=== PATIENT | female | born 1950 | race Caucasian/White ===

== ENCOUNTER → 2018-02-20 | Outpatient (CLI) | payer OTHER ==
[~2018-02-20] MED LIST: ADV100/50 INH; ALB6.7R INH; ALBU1.257 IH; ALBU8.5H IH; AZIT-17 PO; BUPR-136 PO; CIPR-214 PO; CLO10 MT; CYC10 PO; DIA5 PO; DIAZ-308 PO; DULO30CA6 PO; DULO60CA7 PO; ESCI20TA8 PO; FEXO180T74 PO; FLUT16SP20 NS; FLUT1DIS28 IH; FLUT9.9S; HYDR-385 PO; IPRA3AMP21 IH; LOR5 PO; METH4TAB66 PO; MON10 PO; MONT10TA4 PO; MUPI15CR2 TP; NITR-105 PO; NYST15CR32 TP; ONDA-2 PO; ONDA4TAB PO; OXIC30CR2 TP; OXYC-870 PO; OXYGEN INH; PER PO; PRED20TA6 PO; TRIA5T TOP; VALA100062 PO; [UNRECOGNIZED DRUG - CODE] PO
[2018-02-20 10:18] LABS: PLATELET COUNT, AUTOMATED 233 K/uL (150-450)
== END ==
LOC: LAB 10:06
PROVIDERS: ATTEND Internal Medicine
DX: J45.909 Unspecified asthma, uncomplicated (principal); M54.9 Dorsalgia, unspecified; E66.9 Obesity, unspecified
CPT/HCPCS: 36415; 82040; 82247; 82310; 82374; 82435; 82565; 82947; 84075; 84132; 84155; 84295; 84450; 84460; 84520; 85025